=== PATIENT | male | born 1955 | race African-American/Black ===

== ENCOUNTER 2017-11-04 00:44 | Emergency (ER) | payer SELFPAY ==
[~2017-11-04] VITALS: Ht 182.9 cm; Wt 70.3 kg
--- NOTE | 2017-11-04 00:50 | NUR ---
PT BB RA C/O BACK PAIN FOUND AT [facility] STATING "I CANNOT WALK TO GET OUT OF HERE" PT IS AWAKE ALERT, WANTS FOOD. RESPIRATIONS EVEN UNLABORED. VITAL SIGNS STABLE. WILL CONTINUE TO MONITOR
[2017-11-04] MEDS ORDERED: HYDROCODONE/APAP 5/325MG 1 EACH TABLET ONE (01:15)
[2017-11-04] MEDS ORDERED: ASPIRIN 81 MG TAB.CHEW ONE (01:15)
[2017-11-04 01:18] LABS: BASOPHILS % (AUTO) 0.6 % (0.0-2.0); EOSINOPHILS % (AUTO) 10.8 % (0.0-6.0); HEMATOCRIT 46 % (39-51); HEMOGLOBIN 15.1 g/dL (13.5-17.5); LYMPHOCYTES # (AUTO) 1.6 /CMM (0.8-4.8); LYMPHOCYTES % (AUTO) 23.4 % (20.0-44.0); MEAN CORPUSCULAR HGB CONC 33 g/dl (31.0-36.0); MEAN CORPUSCULAR VOLUME 94 fL (80-96); MONOCYTES # (AUTO) 0.5 /CMM (0.1-1.30); NEUTROPHILS # (AUTO) 4.1 /CMM (1.8-8.9); NEUTROPHILS % (AUTO) 58.2 % (43.0-81.0); PLATELET COUNT (AUTO) 169 /CMM (150-450); RED BLOOD CELL COUNT(AUTO) 4.86 MIL/uL (4.5-6.0)
[2017-11-04] MEDS: HYDROCODONE/APAP 5/325MG 1 EACH TABLET PO ONE (01:24)
[2017-11-04] MEDS: ASPIRIN 81 MG TAB.CHEW PO ONE (01:24)
[2017-11-04 01:44] LABS: CALCIUM, SERUM 9.3 mg/dL (8.5-10.1); CARBON DIOXIDE 31 mmol/L (21-32); CHLORIDE 104 mmol/L (98-107); CREATININE 0.9 mg/dL (0.6-1.3); GLUCOSE 80 mg/dL (74-106); LIPASE 129 U/L (73-393); POTASSIUM 4.1 mmol/L (3.5-5.1); SODIUM SERUM 140 mmol/L (136-145); UREA NITROGEN, BLOOD 11 mg/dL (7-18)
[2017-11-04 01:45] LABS: ACETAMINOPHEN 0 ug/ml (10-30); ALCOHOL, BLOOD < 3 mg/dL (0-0); SALICYLATE 2.2 mg/dL (2.8-20.0)
[2017-11-04 01:48] LABS: TROPONIN I < 0.017 ng/mL (0.00-0.056)
[2017-11-04 01:56] LABS: ALANINE AMINOTRANSFERASE 35 U/L (12-78); ALBUMIN 3.8 g/dL (3.4-5.0); ALKALINE PHOSPHATASE 76 U/L (46-116); ASPARTATE AMINOTRANSFERASE 34 U/L (15-37); B-TYPE NATRIURETIC PEPTIDE 41 PG/ML (0-125); BILIRUBIN,DIRECT 0.1 mg/dL (0.0-0.2); BILIRUBIN,TOTAL 0.5 mg/dL (0.2-1.0); TOTAL PROTEIN, SERUM 7.5 g/dL (6.4-8.2)
[2017-11-04 02:31] LABS: INR 0.98 (0.87-1.13)
[2017-11-04] MEDS ORDERED: NEOM/POLY B SULF/HC OTIC SUSP 10 ML BOTTLE ONE (03:13)
[2017-11-04] MEDS: NEOM/POLY B SULF/HC OTIC SUSP 10 ML BOTTLE OT ONE (03:16)
[2017-11-04 03:17] VITALS: BP 131/78
== END 2017-11-04 03:19 | disposition home or self-care (01) ==
LOC: ER 00:47
DX: H92.03 Otalgia, bilateral (principal); Z59.0 Homelessness; R94.31 Abnormal electrocardiogram [ECG] [EKG]
CPT/HCPCS: 36415; 71045-TC; 80048-TC; 80076-TC; 80305; 83690-TC; 83880; 84484-TC; 85025-TC; 85730-TC; A4606; G0480; Z7610